=== PATIENT | female | born 1950 | race Caucasian/White ===

== ENCOUNTER → 2017-06-26 | Outpatient (CLI) | payer OTHER ==
--- NOTE | 2017-06-26 12:43 | MAMMOGRAPHY REPORT ---
BILATERAL DIGITAL DIAGNOSTIC MAMMOGRAM TOMOSYNTHESIS WITH CAD: 06/26/2017 CLINICAL HISTORY: Asymptomatic. Personal history of breast cancer. TECHNIQUE: Breast tomosynthesis in addition to standard 2D mammography was performed. Current study was also evaluated with a Computer Aided Detection (CAD) system. COMPARISON: Comparison is made to exams dated: 06/25/2016 mammogram, 06/21/2015 mammogram, 06/13/2014 josé luis mogram, 06/10/2013 mammogram, 06/09/2012 mammogram, and 06/04/2011 mammogram - [facility]. BREAST COMPOSITION: There are scattered areas of fibroglandular density in both breasts. FINDINGS: There is evidence of prior surgery in the right breast and axilla. Surgical clips remain i n place in the right upper outer quadrant. There are a few scattered benign coarse calcifications in the breasts. No new suspicious mass, architectural distortion or cluster of microcalcifications is seen. IMPRESSION: ACR BI-RADS CATEGORY 1: NEGATIVE There is no mammographic evidence of malignancy. A 1 year screening mammogram is recommended. The pa tient has been verbally notified of the results. Approximately 10% of breast cancers are not detected with mammography. A negative mammographic report should not delay biopsy if a clinically suggestive mass is present. Cecy Rodriguez M.D. ay/:06/26/2017 08:40:03 Plush Brusher: Anali QUIJANO)([place]), [facility] letter sent: Normal 1/2 BI-RADS Code: ACR BI-RADS Category 1: Negative
== END | disposition home or self-care (01) ==
LOC: C.MAMM 08:18
PROVIDERS: ATTEND Family Medicine
DX: Z12.31 Encounter for screening mammogram for malignant neoplasm of breast (principal); Z85.3 Personal history of malignant neoplasm of breast

== ENCOUNTER 2022-12-13 07:49 | Observation (INO) ==
--- NOTE | 2022-10-22 15:40 | PAT Medication Instructions ---
Medication Instructions Date of Service October 22, 2022 Home Medications lisinopril 10 mg-hydrochlorothiazide 12.5 mg tablet (Zestoretic) 1 tab PO HS meloxicam 15 mg tablet 15 mg PO QAM alprazolam 1 mg tablet (Xanax) 0.5 mg PO HS omeprazole magnesium 20 mg tablet,delayed release (Prilosec OTC) 20 mg PO UD PRN zolpidem 5 mg tablet (Ambien) 5 mg PO HS PRN levothyroxine 125 mcg tablet 125 mcg PO QAM liothyronine 5 mcg tablet 5 mcg PO QAM acetaminophen 650 mg tablet,extended release 650 mg PO Q12H PRN ibuprofen 400 mg tablet 400 mg PO Q6H PRN rosuvastatin 10 mg tablet (Crestor) 10 mg PO QPM ASK your surgeon for instructions meloxicam 15 mg tablet 15 mg PO QAM ibuprofen 400 mg tablet 400 mg PO Q6H PRN Take morning of surgery With a small sip of water, OTHERWISE NOTHING TO EAT OR DRINK AFTER MIDNIGHT: omeprazole magnesium 20 mg tablet,delayed release (Prilosec OTC) 20 mg PO UD PRN (if needed) levothyroxine 125 mcg tablet 125 mcg PO QAM liothyronine 5 mcg tablet 5 mcg PO QAM acetaminophen 650 mg tablet,extended release 650 mg PO Q12H PRN(if needed) Take evening before surgery lisinopril 10 mg-hydrochlorothiazide 12.5 mg tablet (Zestoretic) 1 tab PO HS alprazolam 1 mg tablet (Xanax) 0.5 mg PO HS zolpidem 5 mg tablet (Ambien) 5 mg PO HS PRN(if needed) acetaminophen 650 mg tablet,extended release 650 mg PO Q12H PRN(if needed) rosuvastatin 10 mg tablet (Crestor) 10 mg PO QPM Other Notes If you have any questions please call us at [phone] or [phone] or [phone] or [phone]
--- NOTE | 2022-10-29 13:39 | Anesthesiology Consultation ---
Date of Service October 29, 2022 Assessment & Plan (1) Encounter for pre-operative examination: Chart Review Chart Review: Acceptable Risk for Surgery (pending carotid doppler results (wrote note to PCP to order)) and Patient seen in Pre Admission Testing - Will write note to PCP re: possible carotid bruits and if carotid doppler can be ordered prior to surgery - Pt is NOT a Same Day Joint candidate due to bilateral TKA. Pt aware of pros and cons of bilateral TKA and feels comfortable proceeding as scheduled Per PAT appt on 10/29/22, patient denies any recent travel or large group activities. Pt is vaccinated for Covid. Will leave to surgeon's discretion if preop Covid testing needed. Educated on importance of using Covid precautions one week prior to surgery Teaching & Discussion Pre-Anesthesia Teaching/Discussion Notes: Instructed NPO after midnight before surgery,except medications with 15 cc of water. Medication instructions provided according to the PAT guidelines. History Surgery Operation Date: 11/26/22 12:45 Proposed Procedures p Total Knee Arthroplasty Bilateral - Jarred Farmer, Height/Weight Height: 5 ft 1 in Weight: 70.2 kg Allergies Allergy/AdvReac Type Severity Reaction Status Date / Time latex Allergy Mild SKIN Verified 10/22/22 13:37 IRRITATION silver sulfadiazine Allergy Rash Verified 10/22/22 13:37 [From Silvadene] Medications Home Medications Medication Instructions Recorded Confirmed Last Taken lisinopril 10 1 tab PO HS 04/19/20 10/22/22 03/04/22 mg-hydrochlorothiazide 12.5 mg tablet (Zestoretic) meloxicam 15 mg tablet 15 mg PO QAM 04/28/20 10/22/22 03/04/22 alprazolam 1 mg tablet (Xanax) 0.5 mg PO HS 02/22/22 10/22/22 03/04/22 omeprazole magnesium 20 mg 20 mg PO UD PRN Acid Reflux 02/22/22 10/22/22 03/04/22 tablet,delayed release (Prilosec OTC) zolpidem 5 mg tablet (Ambien) 5 mg PO HS PRN Insomnia 02/22/22 10/22/22 03/04/22 levothyroxine 125 mcg tablet 125 mcg PO QAM 03/13/22 10/22/22 03/19/22 05:30 liothyronine 5 mcg tablet 5 mcg PO QAM 03/13/22 10/22/22 Unknown acetaminophen 650 mg 650 mg PO Q12H PRN Pain 10/22/22 10/22/22 Unknown tablet,extended release ibuprofen 400 mg tablet 400 mg PO Q6H PRN Pain 10/22/22 10/22/22 Unknown rosuvastatin 10 mg tablet (Crestor) 10 mg PO QPM 10/22/22 10/22/22 Unknown Past Medical History Medical History Acid reflux Well controlled and stable Borderline high cholesterol On low dose Crestor History of breast cancer RIGHT , AGE 47, LUMPECTOMY, HX RADIATION AND TAMOXIFEN NO LIMB RESTRICTION History of COVID-19 08/28/22 - home test- mild symptoms (nasal drainage, cough, fatigue)- resolved HTN (hypertension) Hypothyroid Sleep trouble Exercise / Class Metabolic Activity II 4-5 Yardwork/Stairs/Walk up hill (one flight of stairs - no chest pain or SOB ) Past Family History Family History Father History of colorectal cancer Mother Family history of diabetes mellitus Past Surgical History Surgical History History of cataract surgery bilateral History of colonoscopy History of hysterectomy History of lumpectomy of right breast History of tonsillectomy Past Anesthesia History No Hx of Anesthesia Complications and No Family Hx of Anesthesia Complications History of PONV No Hx of PONV and Hx of Motion Sickness Social History Smoking Status: Former smoker tobacco type: cigarettes Do You Dip or Chew Tobacco: No Smoking End Date: 23 year ago Hx Alcohol Use: Yes Alcohol type: hard liquor alcohol intake frequency: holidays/special occasions only Hx Substance Use: No substance use type: does not use Review of Systems Patient denies chest pain, shortness of breath, dyspnea on exertion, cough, wheezing, palpitations. No hx of seizures, stroke, [place], apnea/snoring. No hx of blood clots or blood transfusions Physical Exam Vital Signs VITALS BP 152/71 P 65 TEMP 98.2 SP02 100% RESP 16 Constitutional no acute distress ENMT Mouth: no TMJ clicking Thyromental Distance: > or= 3.5 Finger Breadths (3.5) Mallampati Class: III Bridges Capped to front bottom tooth (use caution) Neck neck extension not limited Respiratory normal respiratory effort; no respiratory distress Auscultation: lungs clear to auscultation bilaterally; no wheezes Cardiovascular Rate/Rhythm: regular rate and regular rhythm Heart Sounds: no murmur Vessels: + carotid bruit (Faint bruits bilaterally ) Musculoskeletal Spine: no pain with cervical ROM Extremities: extremities normal to inspection Psychiatric Orientation: alert Lab Results Anesthesia Preop Results Results Anesthesia Widget: WBC 7.85 K/ul (4.8-10.8) 10/29/22 Hgb 13.0 g/dl (12.0-16.0) 10/29/22 Hct 38.5 % (34.1-44.9) 10/29/22 Plt 196 K/uL (130-400) 10/29/22 Na 140 mmol/L (136-145) 10/29/22 K 3.4 mmol/L (3.5-5.1) L 10/29/22 Cl 106 mmol/L (98-107) 10/29/22 CO2 28 mmol/L (21-32) 10/29/22 BUN 30 mg/dl (6-23) H 10/29/22 Creat 0.65 mg/dl (0.6-1.2) 10/29/22 Glucose Level 123 mg/dl (70-99(Fasting)) H 10/29/22 PT 10.4 Seconds (9.0-12.0) 10/29/22 PTT 25.8 Seconds (21.0-31.0) 10/29/22 INR 1.0 (0.9-1.1) 10/29/22 TSH 0.739 uIu/ml (0.300-4.500) 10/07/22 HA1c 5.5 % (4.5-5.6) 10/07/22 Blood Type A Positive 10/29/22 Antibody Screen NEGATIVE 10/29/22 Testing Electrocardiogram Date: 10/29/22 Findings: + NSR @ (61bpm) Normal EKG per cardio. Chest X-Ray Date: 10/29/22 Findings: + NAD COVID-19 Risk Screen Screening Information COVID-19 Screen Date: 10/29/22 Exposure 21 Days Family/Household +COVID Last 21 Days: No Exposure 10 Days Any COVID Exposure Last 10 Days: No Symptoms Last 10 Days Experienced COVID Sx Last 10 Days: No + COVID 0-90 Days COVID + in Last 0-90 Days: Yes + COVID Test 0-10 Day: No + COVID Test 11-90 Day: Yes Date/Place of COVID-19 Test: 08/28/22 or earlier Currently Having Symptoms Related to COVID: No +Covid 0-90 Day Pathway: (Will be > 90 days by DOS) Risk Plan COVID Risk Plan: No Risk Identified Patient Education COVID Preop Screening Education Complete: Yes
--- NOTE | 2022-12-13 06:10 | History & Physical Report ---
Date of Service December 13, 2022 Assessment & Plan (1) Osteoarthritis of knees, bilateral: We will proceed with bilateral total knee arthroplasties. Postoperatively she will be started on aspirin for DVT prophylaxis and kept overnight in the hospital for postoperative medical management. She plans to use energy physical therapy upon discharge. History of Present Illness Chief Complaint: Osteoarthritis bilateral knees. Primary Care Provider: Mervin Craig MD Rachael is a 71-year-old female, who is very active. She plays a lot of pickleball. Unfortunately, she has been dealing with worsening osteoarthritis of both knees. She is really struggling. She has had multiple injections in the knees. After failing years of conservative treatment, she has elected to proceed with bilateral total knee arthroplasties. . Allergies Allergy/AdvReac Type Severity Reaction Status Date / Time latex Allergy Mild SKIN Verified 10/22/22 13:37 IRRITATION silver sulfadiazine Allergy Rash Verified 10/22/22 13:37 [From Silvadene] Home Medications Medication Instructions Recorded Confirmed Type lisinopril 10 1 tab PO HS 04/19/20 10/22/22 History mg-hydrochlorothiazide 12.5 mg tablet (Zestoretic) meloxicam 15 mg tablet 15 mg PO QAM 04/28/20 10/22/22 History alprazolam 1 mg tablet (Xanax) 0.5 mg PO HS 02/22/22 10/22/22 History omeprazole magnesium 20 mg 20 mg PO UD PRN Acid Reflux 02/22/22 10/22/22 History tablet,delayed release (Prilosec OTC) zolpidem 5 mg tablet (Ambien) 5 mg PO HS PRN Insomnia 02/22/22 10/22/22 History levothyroxine 125 mcg tablet 125 mcg PO QAM 03/13/22 10/22/22 History liothyronine 5 mcg tablet 5 mcg PO QAM 03/13/22 10/22/22 History acetaminophen 650 mg 650 mg PO Q12H PRN Pain 10/22/22 10/22/22 History tablet,extended release ibuprofen 400 mg tablet 400 mg PO Q6H PRN Pain 10/22/22 10/22/22 History rosuvastatin 10 mg tablet (Crestor) 10 mg PO QPM 10/22/22 10/22/22 History Past Med/Surg History Medical History Acid reflux Well controlled and stable Borderline high cholesterol On low dose Crestor Carotid artery stenosis 50% focal stenosis of proximal left internal carotid artery per 11/29/2022 neck CTA History of breast cancer RIGHT , AGE 47, LUMPECTOMY, HX RADIATION AND TAMOXIFEN NO LIMB RESTRICTION History of COVID-19 08/28/22 - home test- mild symptoms (nasal drainage, cough, fatigue)- resolved HTN (hypertension) Hypothyroid Sleep trouble Surgical History History of cataract surgery bilateral History of colonoscopy History of hysterectomy History of lumpectomy of right breast History of tonsillectomy Family History Father History of colorectal cancer Mother Family history of diabetes mellitus Social History Smoking Status: Former smoker Second Hand Exposure: No; Hx Alcohol Use: Yes Alcohol type: hard liquor Hx Substance Use: No Preferred Language: Romansh Communication Ability: Effective Utility Aircrewman Required: No Beliefs That Will Affect Care: None Current Living Situation: Alone Current Living Situation Comment: 2 DOGS, 3 HORSES AND A CAT Feels Safe at Home: Yes Assistive Devices: Glasses Review of Systems All systems reviewed & are unremarkable except as noted in HPI & below. Physical Exam On physical examination of both knees, she has a varus deformity. She has tenderness palpation of the distal medial femoral condyle.. Constitutional WD/WN, vitals as above Eyes PERRL, conjunctivae normal, anicteric sclerae ENMT external ear and nose normal, oropharynx normal Neck trachea midline, no thyromegaly Respiratory normal respiratory effort, lungs clear to auscultation Cardiovascular RRR, no murmur, no edema Gastrointestinal (Abdomen) normal bowel sounds, soft, nontender, no hepatosplenomegaly Skin no rashes, warm and dry Psychiatric A+Ox3, euthymic affect Results & Data Results & Data Laboratory Results . Diagnostic Findings X-rays of both knees show advanced osteoarthritis with joint space narrowing, osteophyte formation, and [id number] articulation. PG Care Time/CCT Total # of Minutes Spent Total Time Spent with Patient: Total time spent is greater than 50% in coordination of care (as documented) at patient's floor/unit and/or counseling patient: Coding Level of Care Code None Diagnoses Osteoarthritis of knees, bilateral M17.0
[~2022-12-13 07:49] MED LIST: ACETAMINOPHEN 500 MG TAB PO SCH; BUPIVACAINE 0.5 % 5 MG/1 ML PF 10ML VIAL ONE; FAMOTIDINE 20 MG TAB PO SCH; GABAPENTIN 300 MG CAP PO SCH; LR 500ML BOLUS, THEN 15ML/HR IV SCH; LR 60ML/HR IV SCH; ORTHO JOINT MIX INFIL SCH; ROPIVACAINE 0.5% 5 MG/ML 30 ML VIAL ONE; TRANEXAMIC ACID 1,000 MG **IV Intra-op IV SCH; TRANEXAMIC ACID 1,000 MG **IV Pre-op IV SCH; ceFAZolin 2000MG 2,000 MG/15 ML SYR IV SCH; dexAMETHasone 4 MG TAB PO SCH
[2022-12-13] MEDS ORDERED: LIDOCAINE 2% MPF LOCAL 5 ML VIAL INFIL ONE (08:53)
[2022-12-13] MEDS ORDERED: PROPOFOL IV EMULSION 10 MG/ML 20 ML VIAL IV ONE ×3 (08:53→13:04)
[2022-12-13] MEDS ORDERED: MIDAZOLAM HCL 1 MG/ML 2ML VIAL ONE (08:53)
[2022-12-13] MEDS ORDERED: ONDANSETRON INJ 2 MG/ML 2 ML VIAL ONE (08:53)
[2022-12-13] MEDS ORDERED: ORTHO JOINT ANESTHETIC ONE (09:53)
[2022-12-13] MEDS ORDERED: HYDROmorphone INJ 2 MG/ML SYR/VIAL IV PRN (10:05)
[2022-12-13] MEDS ORDERED: ePHEDrine sulfate 50 MG/ML AMP IV PRN (10:05)
[2022-12-13] MEDS ORDERED: ATROPINE SULFATE 0.1 MG/ML 10ML SYR IV PRN (10:05)
[2022-12-13] MEDS ORDERED: ONDANSETRON INJ 2 MG/ML 2 ML VIAL IV PRN ×2 (10:05→14:59)
[2022-12-13] MEDS ORDERED: fentaNYL citrate 100 MCG/2 ML VIAL IV PRN (10:05)
[2022-12-13] MEDS ORDERED: GLYCOPYRROLATE 0.2 MG/ML VIAL ONE (10:53)
[2022-12-13] MEDS ORDERED: ePHEDrine sulfate 50 MG/ML SYR ONE (11:13)
--- NOTE | 2022-12-13 12:55 | Operative Report ---
PG Post Operative Report Pre & Post Diagnosis Operation Date: 12/13/22 10:30 Pre-Op Diagnosis: Osteoarthritis Bilateral Knees Post-Op Diagnosis: Osteoarthritis Bilateral Knees Operation Date: 01/10/23 12:50 <No data on this case meets the specified criteria> I identified the patient and participated in the time-out.: Yes Procedure Operation Date: 12/13/22 10:30 Actual Procedures p Bilateral Total Knee Arthroplasty(Bilateral) - Jarred Farmer DO Operation Date: 01/10/23 12:50 <No data on this case meets the specified criteria> Surgeon Jarred Farmer DO Writing Tutor Jarred Rivera PA-C Estimated Blood Loss 50 Findings Consistent with Post-Op Diagnosis Specimens Right and left femoral and tibial bone Description of Procedure Rachael arrived [facility] for the above procedure. She was seen in the preoperative holding area and both knees were identified and signed. She was given a preoperative antibiotic, TXA, a spinal anesthetic and adductor nerve blocks. She was taken back to the operating room and laid on the table in supine position. She was given basic sedation. Both knees were then prepped and draped in sterile fashion. A timeout was done, and the patient and the operative extremities were properly identified. Right knee implants used: I used a Tamica Persona total knee arthroplasty system with a size 7 narrow femur, C tibia, 28 oval patella, and a size 12 CPS polyethylene bearing. All components were cemented in place with Palacos G cement. A midline incision was made directly over the patella. Dissection was taken down to the extensor mechanism. A midvastus arthrotomy was used. The medial retinaculum was released and the fat pad was mostly excised. The knee was flexed and the ACL, PCL, and meniscus were removed. A drill was sent down the center of the femoral canal followed by an intramedullary rj. Off that rj a distal femoral cutting block was placed. 9 mm was resected off the distal femur at 5 of valgus. A posterior referencing AP sizing guide was then placed on the distal femur. The femur measured to be a size 7 narrow. 2 drill holes were placed in 3 of external rotation. A 4-in-1 cutting block was then impacted into place. Anterior, posterior, and chamfer cuts were then made. The proximal tibia was then exposed. An external tibial alignment guide was placed. A tibial cut guide was then anchored in place and the proximal tibia was then resected. The posterior aspect of the knee was then opened up and any additional meniscus fragments and osteophytes were removed. The tibia measured to be a size C. The tibial plate was then placed in the appropriate rotation and the tibia was drilled and punched. Trial components were then placed. I used a size 12 CPS polyethylene insert. The knee was brought through a full range of motion and felt to be stable. The peg holes for the femur were then drilled. The patella was then everted and 9 mm was resected off the posterior aspect of the patella. The patella measured to be a size 28 oval. 3 peg holes were then drilled. A trial patella was placed. The knee was once again brought through a full range of motion and felt to be stable. Trial components were then removed. The surrounding soft tissues were injected with 50 cc of an orthopedic pain control cocktail. All components were then cemented into place with Palacos G cement. The final polyethylene insert was then snapped into place. Once cement was dry the tourniquet was deflated. Hemostasis was obtained. A dilute betadyne lavage was then done for 3 minutes. The joint was then irrigated with normal saline solution. The midvastus arthrotomy was then closed with #1 Vicryl suture. The skin was closed with 2-0 Vicryl, 3-0V lock suture, and chai. A Silverlon and a soft compressive dressing were placed. Left knee implants used: I used a Tamica Persona total knee arthroplasty system with a size 7 narrow femur, C tibia, 28 oval patella, and a size 12 CPS polyethylene bearing. All components were cemented in place with Palacos G cement. A midline incision was made directly over the patella. Dissection was taken down to the extensor mechanism. A midvastus arthrotomy was used. The medial retinaculum was released and the fat pad was mostly excised. The knee was flexed and the ACL, PCL, and meniscus were removed. A drill was sent down the center of the femoral canal followed by an intramedullary rj. Off that rj a distal femoral cutting block was placed. 9 mm was resected off the distal femur at 5 of valgus. A posterior referencing AP sizing guide was then placed on the distal femur. The femur measured to be a size 7 narrow. 2 drill holes were placed in 3 of external rotation. A 4-in-1 cutting block was then impacted into place. Anterior, posterior, and chamfer cuts were then made. The proximal tibia was then exposed. An external tibial alignment guide was placed. A tibial cut guide was then anchored in place and the proximal tibia was resected. The posterior aspect of the knee was then opened up and any additional meniscus fragments and osteophytes were removed. The tibia measured to be a size C. The tibial plate was then placed in the appropriate rotation and the tibia was drilled and punched. Trial components were then placed. I used a size 12 CPS polyethylene insert. The knee was brought through a full range of motion and felt to be stable. The peg holes for the femur were then drilled. The patella was then everted and 9 mm was resected off the posterior aspect of the patella. The patella measured to be a size 28 oval. 3 peg holes were then drilled. A trial patella was placed. The knee was once again brought through a full range of motion and felt to be stable. Trial components were then removed. The surrounding soft tissues were injected with 50 cc of an orthopedic pain control cocktail. All components were then cemented into place with Palacos G cement. The final polyethylene insert was then snapped into place. Once cement was dry the tourniquet was deflated. Hemostasis was obtained. A dilute betadyne lavage was then done for 3 minutes. The joint was then irrigated with normal saline solution. The midvastus arthrotomy was then closed with #1 Vicryl suture. The skin was closed with 2-0 Vicryl, 3-0V lock suture, and chai. A Silverlon and a soft compressive dressing were placed. Fortino was then transferred to a hospital bed and taken to the postanesthesia care unit in stable condition. She tolerated the procedure well. Jarred Rivera PA-C, was present for the entire procedure. He was critical for patient positioning, prepping, draping, retraction exposure, wound closure and application of sterile dressing. I attest to the content of the Intraoperative Record and any orders documented therein. Any exceptions are noted below.
--- NOTE | 2022-12-13 13:48 | XRay Report ---
LEFT KNEE 2 VIEWS History: Left total knee arthroplasty. Degenerative arthritis. Postop. FINDINGS: The patient is status post a left total knee arthroplasty. The hardware is intact. No fract ure or dislocation. Skin chai are in place. IMPRESSION: Left total knee arthroplasty. No evidence for hardware complication. ACT 112: Negative or not required by law. Electronically signed by: Abisai Alexander M.D. 12/13/2022 1:46 PM
--- NOTE | 2022-12-13 13:51 | Anesthesiology Progress Note ---
Date of Service December 13, 2022 Anesthesia Post Procedure Vital Signs Vital Signs: Temp Pulse Pulse Resp BP Pulse Ox O2 Del Method 12/13/22 13:40 71 12 92/65 L 94 Room Air 12/13/22 13:30 69 21 106/64 93 Room Air 12/13/22 13:20 36.0 C L 94 H 20 91/59 L 94 Room Air 12/13/22 08:15 36.5 C 65 20 177/87 H 97 Room Air Pain Intensity Bilateral Knee: Pain Intensity: 0 Transfer of Care Handoff Completed per policy Notes Mental Status: alert / awake / arousable and participated in evaluation Patient Amnestic to Procedure: Yes Nausea / Vomiting: adequately controlled Pain: adequately controlled Airway Patency, RR, SpO2: stable & adequate BP & HR: stable & adequate Hydration State: stable & adequate Anesthetic Complications: no major complications apparent and Pt Satisfied with anesthetic care
--- NOTE | 2022-12-13 14:08 | XRay Report ---
TWO VIEWS RIGHT KNEE CLINICAL HISTORY: Postoperative examination. FINDINGS: AP and crosstable lateral portable views of the right knee are obtained. A right knee arthr oplasty is in near anatomic alignment. There has been undersurface remodeling of the patella. No acut e fracture is seen. There are expected postoperative changes around the knee including skin clips, so ft tissue edema, and subcutaneous gas. IMPRESSION: Expected postoperative changes status post right knee arthroplasty. No acute fracture is seen. ACT 112: Negative or not required by law. Electronically signed by: Tony Berg M.D. 12/13/2022 2:06 PM
[2022-12-13] MEDS ORDERED: SODIUM CHLORIDE 0.9% 1000ML 1,000 ML IV SCH (14:59)
[2022-12-13] MEDS ORDERED: bisacodyL 10 MG SUPP PR PRN (14:59)
[2022-12-13] MEDS ORDERED: ZOLPIDEM TARTRATE 5 MG TAB PO PRN (14:59)
[2022-12-13] MEDS ORDERED: NALOXONE HCL 0.4 MG/1 ML VIAL/CARP IV PRN (14:59)
[2022-12-13] MEDS ORDERED: MAGNESIUM HYDROXIDE SUSP 30 ML UDC PO PRN (14:59)
[2022-12-13] MEDS ORDERED: HYDROmorphone INJ 0.5 MG/0.5 ML SYR IV PRN (14:59)
[2022-12-13] MEDS ORDERED: METOCLOPRAMIDE HCL INJ 5 MG/ML 2 ML VIAL IV PRN (14:59)
[2022-12-13] MEDS ORDERED: PANTOprazole 40 MG TAB PO PRN (15:17)
[2022-12-13] MEDS: ACETAMINOPHEN 500 MG TAB PO SCH ×2 (15:31→22:04)
[2022-12-13] MEDS: KETOROLAC TROMETHAMINE 15 MG/ML VIAL IV SCH ×2 (15:32→22:03)
[2022-12-13] MEDS: ERYTHROMYCIN OP OINT 5 MG/GM 3.5 GM TUBE OP SCH ×3 (16:40→22:04)
--- NOTE | 2022-12-13 16:56 | Hospitalist Consultation ---
Date of Consultation December 13, 2022 Assessment & Plan (1) Abrasion of right eye: Agree with assessment by anesthesiology that most likely etiology is abrasion of her right eye Agree with erythromycin ointment Discussed tonometry with the patient and slit lamp evaluation but given low likelihood of acute angle closure glaucoma will defer this unless her pain gets worse is unclear mobility at this time to perform these exams. If not resolving would recommend fluorescein eyedrops with a slit lamp evaluatio n which could be performed in the emergency room to assess for foreign object. Pain medication for her knee should be adequate. No foreign body seen without fluorescein, therefore warm compress is also fine. Do not use topical anesthetic or corticosteroid eyedrops. Plan Thank you for the consult. We will review patient tomorrow. History of Present Illness Reason for Consultation: Pain, redness and blurring vision in right eye. Attending Physician: Jarred Farmer, History of Present Illness Rachael Burr is a 71-year-old female who presents for elective bilateral total knee arthroplasty earlier today performed by Dr. Farmer. Medicine consulted for pain, redness and blurring vision in right eye. No problems prior to surgery. She reports a history of cataract surgery in both eyes bilaterally without complications. She denies any vision impairment at baseline and does not wear contact lenses. Since waking up from surgery she has felt something in her right eye with associated vision blurring. No pressure. Only pain when she is blinking. As I went to see the patient anesthesiology have already assessed her for this problem. Suspected to have an abrasion in her right eye as eyelids are closed but not secured shut. Erythromycin ointment already prescribed. Allergies Allergy/AdvReac Type Severity Reaction Status Date / Time latex Allergy Mild SKIN Verified 12/13/22 08:12 IRRITATION silver sulfadiazine Allergy Rash Verified 12/13/22 08:12 [From Silvadene] Home Medications Medication Instructions Recorded Confirmed Type lisinopril 10 1 tab PO HS 04/19/20 12/13/22 History mg-hydrochlorothiazide 12.5 mg tablet (Zestoretic) meloxicam 15 mg tablet 15 mg PO QAM 04/28/20 10/22/22 History alprazolam 1 mg tablet (Xanax) 0.5 mg PO HS 02/22/22 12/13/22 History omeprazole magnesium 20 mg 20 mg PO UD PRN Acid Reflux 02/22/22 12/13/22 History tablet,delayed release (Prilosec OTC) zolpidem 5 mg tablet (Ambien) 5 mg PO HS PRN Insomnia 02/22/22 10/22/22 History levothyroxine 125 mcg tablet 125 mcg PO QAM 03/13/22 12/13/22 History liothyronine 5 mcg tablet 5 mcg PO QAM 03/13/22 12/13/22 History acetaminophen 650 mg 650 mg PO Q12H PRN Pain 10/22/22 10/22/22 History tablet,extended release ibuprofen 400 mg tablet 400 mg PO Q6H PRN Pain 10/22/22 10/22/22 History rosuvastatin 10 mg tablet (Crestor) 10 mg PO QPM 10/22/22 12/13/22 History Patient History Medical History Acid reflux Well controlled and stable Borderline high cholesterol On low dose Crestor Carotid artery stenosis 50% focal stenosis of proximal left internal carotid artery per 11/29/2022 neck CTA History of breast cancer RIGHT , AGE 47, LUMPECTOMY, HX RADIATION AND TAMOXIFEN NO LIMB RESTRICTION History of COVID-19 08/28/22 - home test- mild symptoms (nasal drainage, cough, fatigue)- resolved HTN (hypertension) Hypothyroid Sleep trouble Surgical History History of cataract surgery bilateral History of colonoscopy History of hysterectomy History of lumpectomy of right breast History of tonsillectomy Family History Father History of colorectal cancer Mother Family history of diabetes mellitus Social History Smoking Status: Former smoker Smoking End Date: 23 year ago; Second Hand Exposure: No; Do You Dip or Chew Tobacco: No; Tobacco Cessation Education Requested by Patient: No Hx Alcohol Use: Yes Alcohol type: hard liquor Hx Substance Use: No Preferred Language: Tajik Communication Ability: Effective Fish Rod Maker Required: No Beliefs That Will Affect Care: None Current Living Situation: Alone Current Living Situation Comment: 2 DOGS, 3 HORSES AND A CAT Other Information That Helps Us Care for You: No Feels Safe at Home: Yes Safety Concerns: Feels Safe At This Time Assistive Devices: Glasses Assistive Devices Comment: millicent Review of Systems Review of Systems: All systems reviewed & are unremarkable except as noted in HPI & below Physical Exam Constitutional: WD/WN, vitals as above Eyes: Lids/lashes -normal Conjunctiva -mild erythema on right eye Cornea -normal Anterior chamber/iris -normal Visual acuity: Left eye 20/25 -2 Right eye 20/25 -2 PERRL - 3mm pupils Red reflex present in both eyes bilaterally EOMI intact without diplopia Fluorescein eyedrops not used Tonometry not used Results & Data Results & Data ([facility]) Vital Signs (Past 12 Hours) Vital Signs Temp Pulse Pulse Resp BP Pulse Ox O2 Del Method 12/13/22 16:09 36.4 C L 66 18 145/85 H 99 Room Air 12/13/22 15:19 36.2 C L 61 16 126/75 98 Room Air 12/13/22 14:41 36.3 C L 60 16 119/75 99 Room Air 12/13/22 14:19 36.4 C L 66 20 118/76 100 Room Air 12/13/22 14:00 79 20 116/74 94 Room Air 12/13/22 13:50 36.7 C 70 14 129/72 94 Room Air 12/13/22 13:40 71 12 92/65 L 94 Room Air 12/13/22 13:30 69 21 106/64 93 Room Air 12/13/22 13:20 36.0 C L 94 H 20 91/59 L 94 Room Air 12/13/22 08:15 36.5 C 65 20 177/87 H 97 Room Air PG Care Time/CCT Total # of Minutes Spent Total Time Spent with Patient: Total time spent is greater than 50% in coordination of care (as documented) at patient's floor/unit and/or counseling patient: Coding Level of Care Code INP/OBS CONSULT LVL 3, 45 MIN Diagnoses Abrasion of right eye S05.8X1A
--- NOTE | 2022-12-13 17:12 | Communication Note ---
Date of Service: December 13, 2022 Called by nursing as patient had mild pain and slightly blurry vision in right eye. Reviewed patient's anesthesia record. Also saw her at bedside. No obvious foreign body noted in right eye. She did have previous cataract surgery and healed incision noted. Spent time explaining she likely has a mild corneal abrasion either from something scratching her eye or possibly a drying injury (since she was sedated and eyes are not secured shut). Stated I would write for erythromycin ointment in her right eye TID for three days or sooner if pain improves. Also explained that she would have some residual blurry vision for a while after ointment is placed. Patient also wants for me to provide an order for a warm washcloth compress for comfort. Primary team is aware and if pain worsens or vision drastically changes, form consult for optho could be placed. All questions answered.
[2022-12-13] MEDS: ceFAZolin 2000MG 2,000 MG/15 ML SYR IV SCH (19:55)
[2022-12-13] MEDS: oxyCODONE HCL IR 5 MG TAB (IMMEDIATE RELEASE) PO PRN (19:55)
[2022-12-13] MEDS ORDERED: ROSUVASTATIN CALCIUM 10 MG TAB PO SCH (21:00)
[2022-12-13] MEDS ORDERED: ALPRAZolam 0.5 MG TABLET PO SCH (21:00)
[2022-12-13] MEDS ORDERED: SENNA 8.6 MG TAB PO SCH (21:00)
[2022-12-13] MEDS ORDERED: LISINOPRIL/HCTZ 10/12.5MG TAB PO SCH (21:00)
[2022-12-13] MEDS: ASPIRIN 81 MG ECTAB PO SCH (22:03)
[2022-12-13] MEDS: DOCUSATE SODIUM 100 MG CAP PO SCH (22:03)
[2022-12-14] MEDS: ceFAZolin 2000MG 2,000 MG/15 ML SYR IV SCH (02:57)
[2022-12-14] MEDS: KETOROLAC TROMETHAMINE 15 MG/ML VIAL IV SCH ×2 (02:57→09:27)
[2022-12-14] MEDS: oxyCODONE HCL IR 5 MG TAB (IMMEDIATE RELEASE) PO PRN ×2 (02:58→09:43)
[2022-12-14] MEDS ORDERED: LIOTHYRONINE SODIUM 5 MCG TAB PO SCH (06:30)
[2022-12-14] MEDS ORDERED: LEVOTHYROXINE SODIUM 125 MCG TABLET PO SCH (06:30)
[2022-12-14] MEDS: ACETAMINOPHEN 500 MG TAB PO SCH (07:16)
[2022-12-14] MEDS ORDERED: dexAMETHasone 4 MG TAB PO SCH (08:00)
--- NOTE | 2022-12-14 08:16 | Orthopedic Progress Note ---
Date of Service December 14, 2022 Assessment & Plan (1) Status post bilateral knee replacements: Overall she is doing well. She has not been much pain in her knees. She will be seen by physical therapy today for ambulation and range of motion exercises. She is on aspirin for DVT prophylaxis. She can be discharged home later today. She will follow-up with orthopedics in 2 weeks. Jose Luis Cano was seen and examined at bedside this morning. Overall she is doing fairly well. She is not having much pain in her knees. She has been up and ambulating in the hallways. She has no complaints.. Review of Systems All systems reviewed & are unremarkable except as noted in HPI & below. Physical Exam On physical examination of her knees, her legs are out full extension. She has active dorsiflexion plantarflexion of her ankles. The dressings are clean and dry.. Results & Data Results & Data Laboratory Results . Diagnostic Findings Postoperative her knees show the prosthesis to be in anatomic alignment without any evidence of fracture, dislocation, or loosening. PG Care Time/CCT Total # of Minutes Spent Total Time Spent with Patient: Total time spent is greater than 50% in coordination of care (as documented) at patient's floor/unit and/or counseling patient: Coding Level of Care Code 37341 Post Operative Follow-Up Diagnoses Status post bilateral knee replacements Z96.653
--- NOTE | 2022-12-14 08:17 | Discharge Summary ---
Date of Service December 14, 2022 Admission HPI (Per Admitting) Rachael is a 71-year-old female, who is very active. She plays a lot of pickleball. Unfortunately, she has been dealing with worsening osteoarthritis of both knees. She is really struggling. She has had multiple injections in the knees. After failing years of conservative treatment, she has elected to proceed with bilateral total knee arthroplasties. . Admission Exam (Per Admitting) On physical examination of both knees, she has a varus deformity. She has tenderness palpation of the distal medial femoral condyle.. Principal Diagnosis Same as "Discharge Diagnosis" noted below under Discharge Instructions. Discharge Exam On physical examination of her knees, her legs are out full extension. She has active dorsiflexion plantarflexion of her ankles. The dressings are clean and dry.. Discharge Data Consultations 12/13/22 16:02 Consult Hospitalist Routine Procedures Performed Operation Date: 12/13/22 10:30 Actual Procedures p Bilateral Total Knee Arthroplasty(Bilateral) - Jarred Farmer DO Operation Date: 01/10/23 12:50 <No data on this case meets the specified criteria> Ordered Studies 12/13/22 05:00 US - OR guided needle placemen Routine Hospital Course (1) Status post bilateral knee replacements: On December 13, [address] [facility] and underwent bilateral knee replacements without complication. She had a spinal anesthetic. Postoperatively she was started on aspirin for DVT prophylaxis and transferred to the general orthopedic floors. Her hospital course was uneventful. On postop day #1, her vital signs were stable and her pain was well controlled. She was able to participate well with physical therapy doing ambulation and range of motion exercises. She was then discharged home. She will follow-up with orthopedics in 2 weeks. PG Care Time/CCT Total # of Minutes Spent Total Time Spent with Patient: Total time spent is greater than 50% in coordination of care (as documented) at patient's floor/unit and/or counseling patient: Discharge Plan Discharge Items Patient Disposition: Home - Home Health Services Reason For Visit: Arthritis Knees Bilateral Discharge Diagnosis: Bilateral knee replacements Activity: As commented below Non-emergency contact: Surgeon Call non-emergency contact if: your wound has increased redness and your wound has increased drainage Follow-up/Referrals: Dennis Rogers MD [Primary Care Provider] - Diet: Regular Addtl Attending Provider Instructions: Activity and Therapy Recommendations: * If you are using [facility] then therapy will be provided at your home until they feel you have accomplished all of your goals. * If you are using [facility] then Physical Therapy will be provided until they feel you are ready to start Outpatient Physical Therapy. * If you are not using home therapy then Outpatient Physical Therapy should start about 3-5 days from your day of surgery. Therapy will last about 6-10 weeks * It is important not to put a pillow under your knee when you are relaxing or sleeping. It is just as important to make sure you are getting your knee perfectly straight as it is to regain your knee bend. * You were shown a series of exercises in the hospital. Do these exercises three times each day including the exercises you were shown in physical therapy. * Get up and walk several times each day. For the first four weeks, try not to stand or walk for more than one hour at a time. If you do stand or walk for more than one hour, you will not hurt anything, but your leg will likely swell. * As you feel comfortable, you may change from the walker or crutches to a cane and then to independent walking. Medications: * Narcotic You will likely be sent home from the hospital with a prescription for the narcotic pain medication that worked best throughout your stay. * Aspirin Most patients will be required to take Aspirin 81mg twice a day for 6 weeks after surgery. This is obtained [id number] and a prescription is not necessary. * Other medications may be prescribed for specific circumstances. If you have any questions, please call the office at . * Resume previous home medications unless otherwise instructed TEDs/Elastic Stockings: The white elastic stockings help limit swelling and prevent blood clots from forming in your legs.~ The more you wear them, the more they work. Wear them fo r six weeks. Dressing Care: The dressing can be changed after physical therapy on postop day #1. Daily dry dressing changes for a few days, especially if the incision is still draining some. If the incision is not draining then you may leave the chai open to air. If there is a little bit of drainage or if the chai are getting stuck on your clothing then cover the incision with a dry dressing. The chai will be removed at your 2 week follow-up appointment. Showering: You may shower 5 days from the day of surgery as long as the incision is no longer draining. You may shower with the chai exposed. Let soapy water run over the chai and pat them dry. Do not scrub or soak the incision. Things To Watch For: * Drainage from the incision site that occurs more than one week after your surgery. * Increased redness at the incision site. * Fever above 102 degrees Fahrenheit. * Unusual chest pain or shortness of breath. * Call [facility] at with any of the above problems Follow-Up Visit: Follow-up with Dr. Farmer's PA (Jarred Rivera) 2-3 weeks after your day of surgery. He will remove your chai and answer any questions. If you have any additional questions or concerns, Dr Farmer is usually in the office at the same time and will be available An appointment was probably scheduled when you signed-up for surgery in the office. If you have any questions call Office Instructions: More detailed instructions as well as Frequently Asked Questions were provided in a folder by our office when you signed-up for surgery. Please review these instructions when you get home. If you have any further questions or concerns, please feel free to call the office at [phone] Pending Studies at Discharge: No Stand-Alone Forms: My [facility], Smoking Cessation Medications and DC Order Prescriptions: New aspirin 81 mg Tablet,Delayed Release (Dr/Ec) 81 mg PO BID 42 Days Qty: 84 0RF Continued meloxicam 15 mg tablet 15 mg PO QAM lisinopril-hydrochlorothiazide [Zestoretic] 10-12.5 mg tablet 1 tab PO HS alprazolam [Xanax] 1 mg Tablet 0.5 mg PO HS zolpidem [Ambien] 5 mg Tablet 5 mg PO HS PRN (Reason: Insomnia) omeprazole magnesium [Prilosec OTC] 20 mg Tablet,Delayed Release (Dr/Ec) 20 mg PO UD PRN (Reason: Acid Reflux) acetaminophen [Tylenol Arthritis] 650 mg Tablet Extended Release 650 mg PO Q12H PRN (Reason: Pain) ibuprofen 400 mg Tablet 400 mg PO Q6H PRN (Reason: Pain) rosuvastatin [Crestor] 10 mg Tablet 10 mg PO QPM liothyronine 5 mcg Tablet 5 mcg PO QAM levothyroxine 125 mcg Tablet 125 mcg PO QAM Admission Data Admit Date/Time: 12/13/22 13:20 Attending Provider: Jarred Farmer Admit Provider: Jarred Farmer Primary Care Provider: Dennis Rogers Other Providers: Damian Putnam ; Marcel West
[2022-12-14 08:45] LABS: BUN Creatinine Ratio 27.9 (10-20); Calcium 8.8 mg/dl (8.5-10.1); Creatinine Clr Calc Pharmacy 50.7 ml/min; Est GFR (African American) 77.1 ml/min; Est GFR (Non-African American) 66.6 ml/min; Potassium 4.5 mmol/L (3.5-5.1)
[2022-12-14 08:47] LABS: Hemoglobin 10.2 g/dl (12.0-16.0); Mean Corpuscular Hemoglobin 29.7 pg (25.0-34.0); Mean Corpuscular Volume 87.5 fL (80.0-100.0); Mean Platelet Volume 10.8 fL (9.4-12.4); Platelet Count 218 K/uL (130-400); RDW Standard Deviation 41.1 fL (36.4-46.3); Red Blood Count 3.43 M/uL (4.20-5.40); White Blood Count 13.71 K/ul (4.8-10.8)
[2022-12-14] MEDS ORDERED: MULTIVITAMIN TAB PO SCH (09:00)
--- NOTE | 2022-12-14 09:13 | Hospitalist Progress Note ---
Date of Service December 14, 2022 Assessment & Plan (1) Abrasion of right eye: Plan: Agree with assessment by anesthesiology that most likely etiology is abrasion of her right eye Agree with erythromycin ointment - continue at d/c Discussed tonometry with the patient and slit lamp evaluation but given low likelihood of acute angle closure glaucoma will defer this unless her pain gets worse is unclear mobility at this time to perform these exams. If not resolving would recommend fluorescein eyedrops with a slit lamp evaluation which could be performed in the emergency room to assess for foreign object. Pain medication for her knee should be adequate. No foreign body seen without fluorescein, therefore warm compress is also fine. Do not use topical anesthetic or corticosteroid eyedrops. 12/14 -- eye exam stable POD#1 p Bilateral Total Knee Arthroplasty(Bilateral) - Jarred Farmer DO. EBL 50cc post-op management per primary service awaiting PT/OT evals but planning for d/c later today [id number] BID for DVT prophylaxis BPs borderline this AM 100/63, denies any significant lightheadedness/dizziness but does endorse poor PO/fluid intake and on lisinopril/HCTZ combination which was given last night. Discussed with daughter and patient and would HOLD this for this evening and consideration for lisinopril on it's own (with repeat labs to ensure no hyperkalemia, but of note was hypokalemic on pre-op labs) Follow up with PCP regarding further management Did ask RN to obtain orthostatic VS prior to discharge, but if no significant drops/symptoms can push oral fluids at d/c and hold her BP medications for this evening (2) Dehydration: Plan: likely combination of poor PO intake/diuretics post op did get some IVF, nothing further check orthostatics, but suspect able to hold diuretic for tonight and push oral fluids (3) HTN (hypertension): Plan: BP borderline -- see above regarding lisinopril/HCTZ she notes BUN prior to our labs w/ her PCP being in the 60s (4) Hypothyroid: Plan: states stable remains on combo Synthroid/liothyronine (5) Carotid artery stenosis: Plan: 50% focal stenosis of proximal left internal carotid artery per 11/29/2022 neck CTA asa 81mg BID for DVT proph as above, recs to continue daily baby ASA following for prevention if no contraindication Plan Thank you for the consult. Check orthostatics prior to d/c. Monitor for any symptoms but suspect able to hold lisinopril/HCTZ for this evening and follow up with PCP for consideration lisinopril on it's own and if needing better BP control consider addition of amlodipine Admission and Anticipated Discharge Date Admission Date: December 13, 2022 Supervising Physician Co-Signing Physician Notes The patient was not seen by me. The chart was reviewed. Case discussed with GORGE Coffey. Agree with assessment and plan Subjective eval this morning, eye symptoms stable, continue erythromycin as directed. Pain much improved to knee. BPs borderline low this morning and RN to check orthostatics. Denies dwaine dizziness once up but this is first she's been out of bed. Per discussion with her and daughter, she does not do a good job at pushing fluids throughout the day. BUN pre op was 30s, but patient does endorse with PCP her BUN was in the 60s. Discussed if she ever had LE edema which she denied. Discussed if thyroid adequately treated she may just benefit from lisinopril by itself nd not the HCTZ combination. She notes she does believe she has some of these by themselves, but discussed holding combo for tonight as she did get dose last evening and follow up with PCP. ASA 81mg BID for DVT proph, but also discussed if able to tolerate baby ASA, may want to consider continuing daily for carotid stenosis (not significant per imaging) questions/concerns addressed, awaiting therapy evals but planning for dc later today. Physical Exam Constitutional: WD/WN, vitals as above sitting up in bathroom getting cleaned up, NAD Eyes: Lids/lashes -normal Conjunctiva -mild erythema on right eye Cornea -normal Anterior chamber/iris -normal Visual acuity: Left eye 20/25 -2 Right eye 20/25 -2 PERRL - 3mm pupils Red reflex present in both eyes bilaterally EOMI intact without diplopia ENMT: mm sligtly dry Respiratory: CTAB, no w/c, 99% on RA Cardiovascular: RRR, no significant m/r/g, no pitting edema/calf tenderness, pulses palpable Musculoskeletal: dressings to LE c/d/i, calves nontender, no drainage, pulses palpable, ice pack in place Psychiatric: AOx3 Results & Data Results & Data ([facility]) Vital Signs (Past 12 Hours) Vital Signs Temp Pulse Pulse Resp BP Pulse Ox O2 Del Method 12/14/22 07:49 100/63 12/14/22 07:40 37.0 C 58 L 18 96/62 L 99 Room Air 12/14/22 03:15 36.3 C L 57 L 16 121/74 96 Room Air 12/13/22 21:29 36.8 C 56 L 16 134/74 99 Room Air Laboratory Results 12/14/22 12/14/22 Range/Units 08:13 08:12 WBC 13.71 H (4.8-10.8) K/ul RBC 3.43 L (4.20-5.40) M/uL Hgb 10.2 L (12.0-16.0) g/dl Hct 30.0 L (37.0-47.0) % MCV 87.5 (80.0-100.0) fL MCH 29.7 (25.0-34.0) pg MCHC 34.0 (32.0-36.0) g/dL RDW Std Deviation 41.1 (36.4-46.3) fL RDW Coeff of Tg 13.0 (11.5-14.5) % Plt Count 218 (130-400) K/uL MPV 10.8 (9.4-12.4) fL Sodium 136 (136-145) mmol/L Potassium 4.5 (3.5-5.1) mmol/L Chloride 102 (98-107) mmol/L Carbon Dioxide 28 (21-32) mmol/L Anion Gap 6 (3-11) BUN 24 H (6-23) mg/dl Creatinine 0.86 (0.6-1.2) mg/dl Est Cr Clr Drug Dosing 50.7 ml/min Est GFR ( Amer) 77.1 ml/min Est GFR (Non-Af Amer) 66.6 ml/min BUN/Creatinine Ratio 27.9 H (10-20) Glucose 137 H (70-99(Fasting)) mg/dl Calcium 8.8 (8.5-10.1) mg/dl PG Care Time/CCT Total # of Minutes Spent Total Time Spent with Patient: Total time spent is greater than 50% in coordination of care (as documented) at patient's floor/unit and/or counseling patient: Coding Level of Care Code 32484 SUB INP/OBS CARE 235MIN Diagnoses Abrasion of right eye S05.8X1A Dehydration E86.0 HTN (hypertension) I10 Hypothyroid E03.9 Carotid artery stenosis I65.29
[2022-12-14] MEDS: ERYTHROMYCIN OP OINT 5 MG/GM 3.5 GM TUBE OP SCH (09:23)
[2022-12-14] MEDS: DOCUSATE SODIUM 100 MG CAP PO SCH (09:25)
[2022-12-14] MEDS: ASPIRIN 81 MG ECTAB PO SCH (09:26)
== END 2022-12-14 12:56 | disposition home health service (06) ==
LOC: ASU 07:49 → 3E 07:49